=== PATIENT | male | born 2000 | race Caucasian/White ===

== ENCOUNTER 2022-08-20 11:09 | Inpatient (IN) | payer MEDICAID ==
[~2022-08-20] VITALS: Ht 160 cm; Wt 57.0 kg
[2022-08-20] MEDS: SODIUM CHLORIDE 0.9% 1,000 ML IV SCH (00:30)
[2022-08-20] MEDS ORDERED: SODIUM CHLORIDE 0.9% 1,000 ML IV ONE ×2 (12:00→23:30)
[2022-08-20] MEDS ORDERED: LORAZEPAM 2MG/ML CPJ IV ONE (12:00)
[2022-08-20 12:22] LABS: BASOPHILS % 0.2 % (0.0-2.0); EOSINOPHILS % 0.4 % (0.0-5.0); HEMATOCRIT. 46.8 % (42.0-52.0); HEMOGLOBIN. 16.5 g/dL (14.0-18.0); LYMPHOCYTES % 12.6 % (20.0-50.0); MEAN CORPUSCULAR HEMOGLOBIN 30.1 pg (28.0-32.0); MEAN CORPUSCULAR VOLUME 85.3 fL (80.0-94.0); MEAN PLATELET VOLUME 8.5 fl (7.4-10.4); NEUTROPHILS % 79.8 % (40.0-76.0); PLATELET 251 x1000/uL (130-400); RED BLOOD CELL COUNT 5.48 mill/uL (4.7-6.1); RED CELL DISTRIBUTION WIDTH 12.9 % (11.6-14.6)
[2022-08-20 12:39] LABS: CHLORIDE 101 mEq/L (98-107)
[2022-08-20 13:02] LABS: CREATINE KINASE 772 IU/L (39-308)
[2022-08-20] MEDS ORDERED: LORAZEPAM 2MG/ML CPJ IV NR (14:00)
[2022-08-20] MEDS ORDERED: POLYMYXIN B SULFATE/TMP 10ML BOTTLE BOTHEYE SCH (15:30)
[2022-08-20] MEDS ORDERED: IPRATROPIUM/ALBUTEROL 0.5-3(2.5)MG/3ML NEB HHN PRN (18:00)
[2022-08-20] MEDS ORDERED: ACETAMINOPHEN 325MG TABLET PO PRN (18:00)
[2022-08-20] MEDS ORDERED: ONDANSETRON HCL 4MG TABLET PO PRN (18:00)
[2022-08-20] MEDS ORDERED: GUAIFENESIN 200MG/10ML SUGAR FREE UDC PO PRN ×2 (18:00→23:15)
[2022-08-20] MEDS ORDERED: CLONIDINE 0.1MG TABLET PO PRN (18:00)
[2022-08-20] MEDS ORDERED: DEXTROSE 50% WATER 50ML SYRINGE IV PRN (18:30)
[2022-08-20 20:37] LABS: CLARITY URINE CLEAR (CLEAR); COLOR URINE DARK YELLOW (YELLOW); KETONES URINE 3+ (NEGATIVE); LEUKOCYTE ESTERASE URINE NEGATIVE (NEGATIVE); NITRITE URINE NEGATIVE (NEGATIVE); OCCULT BLOOD URINE NEGATIVE (NEGATIVE); PROTEIN URINE 1+ (NEGATIVE); SPECIFIC GRAVITY URINE 1.035 (1.005-1.030)
[2022-08-20 20:49] LABS: *AMPHETAMINES SCREEN URINE NEGATIVE (NEGATIVE); *BARBITURATES SCREEN URINE NEGATIVE (NEGATIVE); *BENZODIAZEPINES SCREEN URINE NEGATIVE (NEGATIVE); *COCAINE SCREEN URINE NEGATIVE (NEGATIVE); CANNABINOID URINE SCREEN PRESUMTIVE POSITIVE (NEGATIVE); METHADONE URINE SCREEN NEGATIVE (NEGATIVE); OPIATES URINE SCREEN NEGATIVE (NEGATIVE); PHENCYCLIDINE URINE SCREEN NEGATIVE (NEGATIVE)
[2022-08-20] MEDS: FAMOTIDINE 20MG TABLET PO SCH (21:00)
[2022-08-20] MEDS ORDERED: DOCUSATE SODIUM 100MG CAPSULE PO PRN (23:15)
[2022-08-20] MEDS ORDERED: ACETAMINOPHEN 650MG SUPP PR PRN ×2 (23:15)
[2022-08-21 00:03] LABS: CREATINE KINASE 631 IU/L (39-308)
[2022-08-21 04:25] LABS: HEMOGLOBIN 14.6 g/dL (14.0-18.0); MEAN CORPUSCULAR HEMOGLOBIN 29.8 pg (28.0-32.0); MEAN CORPUSCULAR VOLUME 85.9 fL (80.0-94.0); PLATELET 201 x1000/uL (130-400); RED BLOOD CELL COUNT 4.89 mill/uL (4.7-6.1); RED CELL DISTRIBUTION WIDTH 12.7 % (11.6-14.6)
[2022-08-21 04:47] LABS: CHLORIDE 110 mEq/L (98-107)
[2022-08-21] MEDS ORDERED: ENOXAPARIN 40MG/0.4ML SYR SUBCUT SCH (09:00)
[2022-08-21] MEDS: LORAZEPAM 2MG/ML CPJ IV PRN (10:05)
[2022-08-21] MEDS ORDERED: IPRATROPIUM BROMIDE (0.02%) 0.5MG/2.5ML NEB HHN PRN (12:30)
[2022-08-21] MEDS ORDERED: ALBUTEROL (0.083%) 2.5MG/3ML NEB HHN PRN (12:30)
[2022-08-21] MEDS: SODIUM CHLORIDE 0.9% 1,000 ML IV SCH (19:15)
[2022-08-21] MEDS: FAMOTIDINE 20MG TABLET PO SCH (20:35)
[2022-08-22] MEDS: FAMOTIDINE 20MG TABLET PO SCH ×2 (09:00→20:53)
[2022-08-22 16:00] VITALS: BP 143/67
[2022-08-22] MEDS: LORAZEPAM 2MG/ML CPJ IV PRN (16:17)
[2022-08-23] MEDS: SODIUM CHLORIDE 0.9% 1,000 ML IV SCH ×2 (01:15→13:14)
[2022-08-23] MEDS: FAMOTIDINE 20MG TABLET PO SCH ×2 (09:00→13:14)
[2022-08-23] MEDS ORDERED: LORAZEPAM 2MG/ML CPJ IM PRN (10:45)
[2022-08-23] MEDS ORDERED: LORAZEPAM 1MG TABLET PO PRN (10:45)
[2022-08-23 12:00] VITALS: BP 114/68
[2022-08-23] MEDS ORDERED: LORAZEPAM 0.5MG TABLET PO PRN (15:00)
== END 2022-08-23 15:42 | DRG 757 ==
LOC: ER 11:20 → MICUSO 08-21 04:13 → 7EST 08-21 12:19
PROVIDERS: ADMIT Internal Medicine; ATTEND Internal Medicine
DX: F06.1 Catatonic disorder due to known physiological condition (principal); F94.0 Selective mutism; Z20.822 Contact with and (suspected) exposure to COVID-19; Z88.0 Allergy status to penicillin
CPT/HCPCS: 36415; 71045; 80048; 80053; 80305; 80320; 81003; 82550; 83735; 84100; 85025; 85027; 87426; 93005; 99291; C9803; J1650; J2060; J7030; A4315; G0480

== ENCOUNTER 2023-06-19 19:45 | Emergency (ER) | payer MEDICAID ==
[~2023-06-19] VITALS: Ht 177.8 cm; Wt 90.0 kg
[2023-06-19 19:48] VITALS: O2SAT 98
[2023-06-19] MEDS ORDERED: ZIPRASIDONE HCL 40MG CAPSULE PO ONE (22:45)
[2023-06-19] MEDS ORDERED: OLANZAPINE 5MG TABLET PO SCH (22:45)
[2023-06-19] MEDS ORDERED: OLAN5TAB74 MT (22:46)
[2023-06-19] MEDS ORDERED: ZIPR40CA13 MT (22:46)
[2023-06-19 23:06] VITALS: BP 131/87; PULSE 89; RESP 19; TEMP 98.5
[2023-06-20] MEDS ORDERED: RISPERIDONE 1MG TABLET PO SCH (09:00)
== END 2023-06-19 23:07 | disposition home or self-care (01) ==
LOC: ER 19:45
DX: F10.129 Alcohol abuse with intoxication, unspecified (principal); F20.9 Schizophrenia, unspecified; Z88.0 Allergy status to penicillin; Y90.9 Presence of alcohol in blood, level not specified
CPT/HCPCS: 99283; Z7610 ×2